=== PATIENT | male | born 1935 | race Caucasian/White ===

== ENCOUNTER 2018-08-13 10:59 | Day surgery (SDC) | payer MEDICARE, OTHER ==
[2018-08-13] MEDS: NS 1,000 ML IV (06:00)
[2018-08-13] MEDS ORDERED: PROPOFOL 200 MG/20 ML VIAL As Ordered (11:32)
[2018-08-13] MEDS ORDERED: LIDOCAINE 2% INJ 100 MG/5 ML SDV (FOR ANES.) As Ordered (11:32)
== END 2018-08-13 12:51 | disposition home or self-care (01) ==
LOC: M OPP 10:59
DX: Z12.11 Encounter for screening for malignant neoplasm of colon (principal); Z86.010 Personal history of colon polyps; D12.5 Benign neoplasm of sigmoid colon; D12.4 Benign neoplasm of descending colon; D12.3 Benign neoplasm of transverse colon; D12.2 Benign neoplasm of ascending colon; D12.7 Benign neoplasm of rectosigmoid junction; I10 Essential (primary) hypertension; E03.9 Hypothyroidism, unspecified; K21.9 Gastro-esophageal reflux disease without esophagitis; R12 Heartburn; M19.90 Unspecified osteoarthritis, unspecified site; R06.83 Snoring; G47.30 Sleep apnea, unspecified; N40.1 Benign prostatic hyperplasia with lower urinary tract symptoms; F17.290 Nicotine dependence, other tobacco product, uncomplicated; Z79.899 Other long term (current) drug therapy
CPT/HCPCS: 45385

== ENCOUNTER → 2021-02-21 | Outpatient (REF) | payer MEDICARE ==
[~2021-02-21] MED LIST: ALFU10TA3 PO; DUTA1CAP2 PO; GLUCPOW24 PB; LOSA100T50 PO; MULTCAP PO; NEXI1CAP4 PO; SYNT50TA PO
== END ==
LOC: M LAB REF 11:19
PROVIDERS: ATTEND Family Medicine
DX: C61 Malignant neoplasm of prostate (principal)

== ENCOUNTER → 2021-08-22 | Outpatient (REF) | payer MEDICARE ==
[2021-08-22 17:21] LABS: PROSTATIC SPECIFIC AG MONITOR 11.3 NG/ML (< 4.00)
== END ==
LOC: M LAB REF 16:25
PROVIDERS: ATTEND Family Medicine
DX: E29.1 Testicular hypofunction (principal); R97.20 Elevated prostate specific antigen [PSA]

== ENCOUNTER → 2023-09-02 | Outpatient (REF) | payer MEDICARE ==
[~2023-09-02] MED LIST changes: +LOSA100T46 PO; -LOSA100T50 PO
== END ==
LOC: M LAB REF 16:35
PROVIDERS: ATTEND Family Medicine
DX: R30.0 Dysuria (principal)

== ENCOUNTER → 2024-03-05 | Outpatient (CLI) | payer MEDICARE ==
[~2024-03-05] MED LIST changes: +ISOVUE-300 61% 100ML VIAL As Ordered ONE; +LIDOCAINE 1% MDV 20ML VIAL As Ordered ONE; +methylPREDNISolone SUSP 40MG/ML 1ML VIAL (DEPO MEDROL) As Ordered ONE
== END ==
LOC: M RAD 13:56
PROVIDERS: ATTEND Physician Assistant Surgical
DX: M19.072 Primary osteoarthritis, left ankle and foot (principal)
CPT/HCPCS: 20600; 77002; J1010; Q9967

== ENCOUNTER → 2024-06-08 | Outpatient (CLI) | payer MEDICARE ==
[~2024-06-08] MED LIST changes: +ALFU10TA23 PO; -ALFU10TA3 PO; -ISOVUE-300 61% 100ML VIAL As Ordered ONE; -LIDOCAINE 1% MDV 20ML VIAL As Ordered ONE; -methylPREDNISolone SUSP 40MG/ML 1ML VIAL (DEPO MEDROL) As Ordered ONE
== END ==
LOC: M RAD 10:45
PROVIDERS: ATTEND Physician Assistant Medical
DX: M79.605 Pain in left leg (principal)